=== PATIENT | male | born 1965 ===

== ENCOUNTER → 2022-02-02 07:36 | Outpatient (CLI) | payer OTHER, SELFPAY ==
--- NOTE | ~2022-02-02 | MR_ITS ---
EXAMINATION: MR knee LT wo con DATE: 02/02/2022 08:16 INDICATION: Several months of medial left knee pain TECHNIQUE: Magnetic resonance imaging (MRI) of the left knee was performed without intravenous contra st. Sequences included coronal PD-weighted FSE, coronal PD-weighted FS FSE, sagittal T2-weighted FSE , sagittal PD-weighted FS FSE and axial PD weighted fat saturated FSE. COMPARISON: None. FINDINGS: Medial compartment: Longitudinal horizontal tear extending to the free edge of the posterior horn of the medial meniscus transition to the inferior articular surface at the medial meniscal body. Partial-thickness cartilage loss with scattered deep fissuring at the weightbearing medial femoral condyle. Tiny focus of underl tran subarticular edema-like signal change and minimal cortical irregularity at the posterior weightb earing medial femoral condyle. Mild partial-thickness cartilage loss at the medial aspect of the medi al tibial plateau with there is an additional tiny focus of subarticular edema-like signal change. Lateral compartment: Lateral meniscus is normal. Ulceration and deep fissuring with tiny focus of underlying subarticular edema-like signal change at the junction of the anterior to central weightbearing medial femoral cond yle. Just posterior to this is a flat central subchondral osteophyte measuring 1.3 cm AP and 8 mm med ial collateral which does not extend beyond the level of the surface of the immediately surrounding a rticular cartilage. Normal cartilage along the lateral tibial plateau. Patellofemoral compartment: Deep chondral ulceration at the cephalad aspect of the medial trochlea, along the superior to central aspect of the trochlear groove and at the medial side of the medial trochlea. Patellar cartilage is normal. Small marginal osteophytes are present. Patellar Ligaments and tendons: Anterior and posterior cruciate ligaments are normal. The medial collateral ligament and fibular cristina ateral ligament complex are normal. Small enthesophytes at the patellar insertions of the otherwise n ormal patellar and distal quadriceps tendons. The visualized medial and lateral hamstring tendons as well as the iliotibial band are normal. Fluid: Minimal knee joint effusion at the suprapatellar pouch. No loose osteochondral bodies identified. Osseous/other: Normal bone marrow signal aside from the previous noted tiny foci of degenerative subarticular edema- like signal change. No fracture or pathologic marrow replacing process. IMPRESSION: 1. Horizontal longitudinal tear of the body and posterior horn of the medial meniscus. 2. Mild tricompartmental osteoarthritis with regions of high-grade chondromalacia in all 3 compartmen ts. Reviewed, dictated and finalized at location A. [facility] IMPRESSION: 1. Horizontal longitudinal tear of the body and posterior horn of the medial me niscus. 2. Mild tricompartmental osteoarthritis with regions of high-grade chondromalac ia in all 3 compartments.
== END ==
PROVIDERS: PCP Orthopaedic Surgery; Visit Provider Orthopaedic Surgery
DX: M17.12 Unilateral primary osteoarthritis, left knee (principal); S83.242A Other tear of medial meniscus, current injury, left knee, initial encounter; X58.XXXA Exposure to other specified factors, initial encounter
CPT/HCPCS: 73721